=== PATIENT | female | born 1985 | race African-American/Black ===

== ENCOUNTER 2017-05-11 16:13 | Outpatient (CLI) | payer OTHER | END 2017-05-11 16:14 | disposition home or self-care (01) | LOC: BICMRI 16:13 | PROVIDERS: ATTEND Physical Medicine & Rehabilitation | DX: M25.511 Pain in right shoulder (principal); M25.411 Effusion, right shoulder; M67.813 Other specified disorders of tendon, right shoulder ==

== ENCOUNTER 2018-02-22 13:34 | Outpatient (CLI) | payer OTHER ==
--- NOTE | 2018-02-22 14:42 | RAD ---
LEFT FOOT 3 VIEWS: HISTORY: Fracture of left little toe, followup. FINDINGS: Comparison is made with the exam of 01/18/2018. A small amount of callus formation is seen since the previous exam. The oblique fracture involving the proximal phalanx of the little toe/5th digit is a gain noted without change in alignment. IMPRESSION: Mild/incomplete healing of the fracture of the proximal phalanx of the left 5th toe since 01/18/2018. POS: OPAL
== END 2018-02-22 13:35 | disposition home or self-care (01) ==
LOC: SCSRAD 13:34
PROVIDERS: ATTEND Family Medicine
DX: S92.512D Displaced fracture of proximal phalanx of left lesser toe(s), subsequent encounter for fracture with routine healing (principal)

== ENCOUNTER 2018-03-20 13:18 | Outpatient (CLI) | payer OTHER ==
--- NOTE | 2018-03-20 15:30 | RAD ---
LEFT FOOT 3 VIWES: HISTORY: A 33-year-old female with a history of left 5th digit fracture followup, T14.8XXA. FINDINGS: There is evidence for a healing oblique nondisplaced fracture through the proximal phalanx of the 5th toe. There appears to be some minimal soft tissue swelling over the dorsal aspect of the forefoot. No evidence for a new fracture. IMPRESSION: Healing fracture, nondisplaced, through the proximal phalanx of the 5th toe. No new process. POS: OPAL
== END 2018-03-20 13:19 | disposition home or self-care (01) ==
LOC: SCSRAD 13:18
PROVIDERS: ATTEND Family Medicine
DX: S92.515D Nondisplaced fracture of proximal phalanx of left lesser toe(s), subsequent encounter for fracture with routine healing (principal)